=== PATIENT | female | born 1980 | race Caucasian/White ===

== ENCOUNTER 2016-11-21 14:06 | Emergency (ER) | payer MEDICAID ==
[2016-11-21 14:20] VITALS: BP 126/89; PULSE 75; RESP 16; TEMP 98.4; O2SAT 98
[2016-11-21 14:30] LABS: COLOR YELLOW; LEUKOCYTE ESTERASE,URINE NEGATIVE (NEGATIVE); NITRITE,URINE NEGATIVE (NEGATIVE); PH,URINE 5.5 (5.0-7.5)
--- NOTE | 2016-11-21 15:22 | UCPHY ---
H & P Time Seen by Provider: 11/21/16 15:05 Patient Type: Established HPI/ROS: 36-year-old female presents complaining of burning with urination and frequent urination with some urgency over the last 2 weeks. She denies fevers or chills she denies nausea vomiting diarrhea No new sexual partners. No difficulty emptying her bladder No back pain, no loss of bowel or bladder control. Review of systems General no fever no chills no weakness HEENT no eye pain no eye discharge. No eye redness, no sore throat Respiratory no cough, no shortness of breath Cardiac no chest pain, no peripheral edema GI no abdominal pain, no diarrhea, no constipation, no nausea, no vomiting no flank pain, no hematuria, positive dysuria Musculoskeletal no myalgias, no joint pain Heme no easy bruising, no easy bleeding Endo no polyuria, no polydipsia Skin no rashes, no pruritus Neuro no syncope, no dizziness, no headaches Psych is no suicidal ideation, no homicidal ideation Past Medical/Surgical History: Schizoaffective Asthma Social History: Denies alcohol or drug use Smoking Status: Never smoked Physical Exam: 36-year-old female Alert and oriented in no acute distress nontoxic appearance, afebrile Atraumatic normocephalic Neck no JVD Lungs clear to auscultation, no respiratory distress Heart regular rate and rhythm Extremities no cyanosis clubbing edema Constitutional: Initial Vital Signs Temperature (C) 36.9 C 11/21/16 14:18 Heart Rate 75 11/21/16 14:18 Respiratory Rate 16 11/21/16 14:18 Blood Pressure 126/89 H 11/21/16 14:18 O2 Sat (%) 98 11/21/16 14:18 O2 Delivery Mode Room Air Allergies/Adverse Reactions: No Known Allergies Allergy (Unverified 07/06/16 14:35) Home Medications: Medication Instructions Recorded Albuterol 07/06/16 Medical Decision Making ED Course/Re-evaluation: Patient seen and evaluated for urgent frequent urination. Physical exam normal Urinalysis normal Impression Dysuria unknown etiology possibly anxiety Plan Advised patient to follow up with primary care - Data Points Laboratory Results: 11/21/16 14:30 Urine Color YELLOW Urine Appearance CLEAR Urine pH 5.5 (5.0-7.5) Ur Specific Amelia 1.025 (1.002-1.030) Urine Protein NEGATIVE (NEGATIVE) Urine Ketones NEGATIVE (NEGATIVE) Urine Blood NEGATIVE (NEGATIVE) Urine Nitrate NEGATIVE (NEGATIVE) Urine Bilirubin NEGATIVE (NEGATIVE) Urine Urobilinogen 0.2 EU EU (0.2-1.0) Ur Leukocyte Esterase NEGATIVE (NEGATIVE) Ur Culture Indicated? NOT INDICATED (NI) Urine Glucose NEGATIVE (NEGATIVE) Departure - Departure Disposition: Home, Routine, Self-Care Clinical Impression: Dysuria Condition: Good Instructions: Dysuria (ED) Referrals: Susy Sood MD [Primary Care Provider] - As per Instructions - PQRS PQRS Measurement: na
== END 2016-11-21 15:25 | disposition home or self-care (01) ==
LOC: CED 14:06
DX: R30.0 Dysuria (principal); F41.9 Anxiety disorder, unspecified
CPT/HCPCS: 81003-PO; 99214-PO; G0463-PO